=== PATIENT | female | born 1965 | race Caucasian/White ===

== ENCOUNTER 2017-02-08 06:19 | Emergency (ER) | payer MEDICAID ==
[~2017-02-08] VITALS: Ht 170.2 cm; Wt 75.5 kg
[~2017-02-08 06:19] MED LIST: ACET500C5 PO; BENZ100C70 PO; IBUP-1542 PO; LEVO500T72 PO; OSLT75C PO
[2017-02-08 06:21] VITALS: Ht 170.2 cm; Wt 75.5 kg
[2017-02-08] MEDS ORDERED: ONDANSETRON (ODT) 4 MG TAB ODT STA (06:50)
--- NOTE | 2017-02-08 06:57 | ERD ---
ER Documentation Chief Complaint Date/Time DATE: 02/08/17 TIME: 06:53 Chief Complaint pt c/o htn and then abd pain with n/v, denies saravia HPI This 51-year-old female who presents to the emergency department today complaining of 2 bouts of vomiting that started this morning. Patient states that she also felt some dizziness. States that this has improved since coming to the ER. States that she was worried about her blood pressure because she was told she had high blood pressure 5 years ago. States that she is currently on her menstrual cycle and that she is bleeding more than normal. States that she has also had some diarrhea. States that she think she was told she had anemia in the past. Denies any fevers or chills,, headache, blurred vision ROS All systems reviewed and are negative except as per history of present illness. Medications Home Meds Active Scripts Famotidine* (Pepcid*) 20 Mg Tablet, 20 MG PO BID for 10 Days, TAB Prov:VIVIAN UMAÑA PA-C 02/08/17 Ondansetron Hcl* (Zofran*) 4 Mg Tablet, 4 MG PO Q6H for NAUSEA AND/OR VOMITING, #30 TAB Prov:VIVIAN UMAÑA PA-C 02/08/17 Ibuprofen* (Motrin*) 600 Mg Tab, 600 MG PO Q6, #30 TAB Prov:VIVIAN UMAÑA PA-C 09/03/16 Levofloxacin* (Levaquin*) 500 Mg Tablet, 500 MG PO DAILY for 7 Days, TAB Prov:VIVIAN UMAÑA PA-C 09/03/16 Oseltamivir Phosphate* (Tamiflu*) 75 Mg Capsule, 75 MG PO BID for 5 Days, CAP Prov:DILMA ALVAREZ PA-C 09/02/16 Acetaminophen* (Tylophen*) 500 Mg Capsule, 1 CAP PO Q6H Y for PAIN AND OR ELEVATED TEMP, #20 CAP Prov:DILMA ALVAREZ PA-C 09/02/16 Benzonatate* (Tessalon Perle*) 100 Mg Capsule, 100 MG PO Q8H Y for COUGH for 10 Days, CAP Prov:DILMA ALVAREZC 09/02/16 Allergies Allergies: Coded Allergies: No Known Allergy (Unverified , 09/02/16) PMhx/Soc History of Surgery: No Anesthesia Reaction: No Hx Neurological Disorder: No Hx Respiratory Disorders: No Hx Cardiac Disorders: No Hx Psychiatric Problems: No Hx Miscellaneous Medical Probl: No Hx Alcohol Use: No Hx Substance Use: No Hx Tobacco Use: No Smoking Status: Never smoker Physical Exam Vitals Vital Signs Date Time Temp Pulse Resp B/P Pulse Ox O2 Delivery O2 Flow Rate FiO2 02/08/17 06:21 98.8 76 20 143/82 99 Physical Exam Const: No acute distress Head: Atraumatic Eyes: Normal Conjunctiva ENT: Normal External Ears, Nose and Mouth. Neck: Full range of motion..~ No meningismus. Resp: Clear to auscultation bilaterally Cardio: Regular rate and rhythm, no murmurs Abd: Soft, epigastric tenderness non distended. Normal bowel sounds. No right lower quadrant pain. No left lower quadrant pain. Skin: No petechiae or rashes Neur: Awake and alert Psych: Normal Mood and Affect Result Diagram: 02/08/17 0657 02/08/17 0657 Results 24 hrs Laboratory Tests Test 02/08/17 06:57 02/08/17 07:10 White Blood Count 10.510^3/ul Red Blood Count 4.1510^6/ul Hemoglobin 12.0g/dl Hematocrit 37.4% Mean Corpuscular Volume 90.1fl Mean Corpuscular Hemoglobin 28.9pg Mean Corpuscular Hemoglobin Concent 32.1g/dl Red Cell Distribution Width 13.0% Platelet Count 64208^3/UL Mean Platelet Volume 10.4fl Neutrophils % 87.6% Lymphocytes % 6.9% Monocytes % 4.4% Eosinophils % 0.6% Basophils % 0.2% Nucleated Red Blood Cells % 0.0/100WBC Neutrophils # 9.210^3/ul Lymphocytes # 0.710^3/ul Monocytes # 0.510^3/ul Eosinophils # 0.110^3/ul Basophils # 0.010^3/ul Nucleated Red Blood Cells # 0.010^3/ul Sodium Level 140mmol/L Potassium Level 3.7mmol/L Chloride Level 103mmol/L Carbon Dioxide Level 26mmol/L Anion Gap 15 Blood Urea Nitrogen 13mg/dl Creatinine 0.52mg/dl Glucose Level 99mg/dl Calcium Level 8.7mg/dl Total Bilirubin 0.8mg/dl Direct Bilirubin 0.00mg/dl Indirect Bilirubin 0.8mg/dl Aspartate Amino Transf (AST/SGOT) 31IU/L Alanine Aminotransferase (ALT/SGPT) 32IU/L Alkaline Phosphatase 70IU/L Total Protein 7.8g/dl Albumin 4.0g/dl Globulin 3.80g/dl Albumin/Globulin Ratio 1.05 Lipase 59U/L Bedside Urine pH (LAB) 5.5 Bedside Urine Protein (LAB) Negative Bedside Urine Glucose (UA) Negative Bedside Urine Ketones (LAB) Negative Bedside Urine Blood 2+ Bedside Urine Nitrite (LAB) Negative Bedside Urine Leukocyte Esterase (L Negative Current Medications Medications (Trade) Dose Ordered Sig/Dorina Route PRN Reason Start Time Stop Time Status Last Admin Dose Admin Ondansetron HCl (Zofran Odt) 4 mg ONCE STAT ODT 02/08/17 06:50 02/08/17 06:52 DC 02/08/17 07:01 Famotidine (Pepcid) 20 mg ONCE ONCE PO 02/08/17 07:00 02/08/17 07:01 DC 02/08/17 07:01 Procedures/MDM Is a 51-year-old female who presents to the emergency department today complaining of 2 bouts of vomiting and some dizziness. Patient indicated that she was currently on her menstrual cycle however was bleeding more than usual. On physical exam patient only had epigastric pain. I did obtain laboratory work as well as a UA and EKG Laboratory work shows no elevated white blood cell count. She is not anemic. Platelets are within normal limits. Electrolytes are within normal limits. Glucose is within normal limits. Lipase within normal limits. Liver functions within normal limits. UA is negative for infection. 2+ blood. Patient is currently on menstrual cycle. Urine test is negative EKG read and interpreted by Dr. Blakely rate [address] elevation. No QT prolongation. Normal sinus rhythm. Nonspecific T-wave abnormality. Low suspicion for acute IA, PE, pericarditis. She was concerned that her blood pressure was high as she was told she had high blood pressure 5 years ago. Patient's blood pressure intake is 143/82. Low suspicion for hypertensive emergency or urgency. Low suspicion for cardiac cause of patient's epigastric and 2 bouts of vomiting. Low suspicion for hypoglycemia or hyperglycemia as cause of patient's dizziness. Low suspicion for cardiac cause or serious bacterial infection as cause of patient's dizziness. Patient symptoms at this time is consistent with nausea vomiting and epigastric pain and dizziness Patient was given Zofran and Pepcid here in the emergency department patient reported feeling significantly better. When I walked back into the waiting room to check on the patient she was taking water. Patient will be given a prescription for Zofran and pepcid for home At this time the patient is stable for discharge and outpatient management. Patient should follow up with their PCP in the next 1-2 days. They may return to the emergency department sooner for any persistent or worsening of symptoms. Patient understood and agreed with the plan. Departure Diagnosis: Primary Impression: Multiple complaints Condition: VIVIAN Solomon PA-C February 08, 2017 06:57
[2017-02-08] MEDS ORDERED: FAMOTIDINE 20 MG TAB PO ONE (07:00)
[2017-02-08 07:08] LABS: URINE BLOOD (Dip) POC 2+ (NEGATIVE)
[2017-02-08 07:09] LABS: ADD SCAN DIFF NO
[2017-02-08 07:12] LABS: BASOPHILS % 0.2 % (0.0-2.0); EOSINOPHILS # 0.1 10^3/ul (0.0-0.5); EOSINOPHILS % 0.6 % (0.0-7.0); HEMATOCRIT 37.4 % (37.0-47.0); LYMPHOCYTES # 0.7 10^3/ul (0.8-2.9); LYMPHOCYTES % 6.9 % (15.0-51.0); MEAN CORPUSCULAR HEMOGLOBIN 28.9 pg (29.0-33.0); MEAN CORPUSCULAR HGB CONC 32.1 g/dl (32.0-37.0); MEAN CORPUSCULAR VOLUME 90.1 fl (82.0-101.0); MEAN PLATELET VOLUME 10.4 fl (7.4-10.4); MONOCYTE # 0.5 10^3/ul (0.3-0.9); MONOCYTES % 4.4 % (0.0-11.0); NEUTROPHIL # 9.2 10^3/ul (1.6-7.5); NEUTROPHILS % 87.6 % (39.0-77.0); PLATELET COUNT 271 10^3/UL (140-415); RED BLOOD COUNT 4.15 10^6/ul (4.20-5.40); WHITE BLOOD COUNT 10.5 10^3/ul (4.8-10.8)
[2017-02-08 07:30] LABS: POTASSIUM 3.7 mmol/L (3.5-5.1)
[2017-02-08 07:32] LABS: ALBUMIN/GLOBULIN RATIO 1.05; BILIRUBIN,INDIRECT 0.8 mg/dl (0-1.1); BILIRUBIN,TOTAL 0.8 mg/dl (0.2-1.3); CREATININE 0.52 mg/dl (0.44-1.00); TOTAL PROTEIN 7.8 g/dl (6.1-8.1)
[2017-02-08 07:33] LABS: CALCIUM 8.7 mg/dl (8.4-10.2)
[2017-02-08] MEDS ORDERED: ONDA4TAB8 PO (08:08)
[2017-02-08] MEDS ORDERED: FAMO-18 PO (08:08)
== END 2017-02-08 08:22 | disposition home or self-care (01) ==
LOC: FTE 06:19
DX: R10.13 Epigastric pain (principal); R11.10 Vomiting, unspecified; R42 Dizziness and giddiness
CPT/HCPCS: 36415; 80053; 81003; 83690; 85025; 93005; Z7502; Z7610

== ENCOUNTER 2017-12-03 16:54 | Emergency (ER) | END 2017-12-03 21:42 | disposition home or self-care (01) ==